=== PATIENT | male | born 1955 ===

== ENCOUNTER 2022-04-08 14:42 | Outpatient (CLI) | payer BC | END 2022-04-08 14:43 | disposition home or self-care (01) | LOC: LABHHL 14:42 | PROVIDERS: ATTEND Otolaryngology Otology & Neurotology | DX: J32.9 Chronic sinusitis, unspecified (principal); J32.0 Chronic maxillary sinusitis; J32.2 Chronic ethmoidal sinusitis; J30.9 Allergic rhinitis, unspecified | CPT/HCPCS: 88305; 88311 ==